=== PATIENT | male | born 1945 ===

== ENCOUNTER 2017-12-02 01:31 | Emergency (ER) | payer OTHER, MEDICAID ==
[2017-12-02 01:32] VITALS: BMI 27.1
--- NOTE | 2017-12-02 01:47 | ED PDOC ---
Arrival/HPI - General Chief Complaint: Trauma Time Seen by Provider: 12/02/17 01:47 Historian: Patient - History of Present Illness Narrative History of Present Illness (Text): 12/02/17 02:16 72 year old male, whose past medical history includes diabetes and hypertension, who presents to the ED with a rt elbow abrasion s/p fall while intoxicated. Patient admits to drinking 2 drinks of whiskey. Patient went outside to smoke when he fell to the ground. 2 people walking past called EMS. Patient denies any head trauma, LOC, back pain, neck pain, nausea, vomiting, diarrhea, abdominal pain, or any other complaints. Time/Duration: Prior to Arrival Symptom Course: Unchanged Activities at Onset: Light Context: Home Past Medical History - Provider Review Nursing Documentation Reviewed: Yes - Infectious Disease Hx of Infectious Diseases: None - Cardiac Hx Pacemaker: No - Neurological Hx Paralysis: No - Hematological/Oncological Hx Blood Transfusions: No Hx Blood Transfusion Reaction: No - Musculoskeletal/Rheumatological Hx Musculoskeletal Disorders: No - Psychiatric Hx Substance Use: No - Anesthesia Hx Anesthesia Reactions: No Hx Malignant Hyperthermia: No Family/Social History - Physician Review Nursing Documentation Reviewed: Yes Family/Social History: Unknown Family HX Hx Substance Use: No Allergies/Home Meds Allergies/Adverse Reactions: Allergies No Known Allergies Allergy (Verified 12/10/13 11:18) Home Medications: Home Meds Medication Instructions Recorded Confirmed Amlodipine Besylate 5 mg PO DAILY 12/10/13 12/02/17 Enalapril Maleate [Enalapril] 10 mg PO DAILY 12/10/13 12/02/17 Hydrochlorothiazide 12.5 mg PO DAILY 12/10/13 12/02/17 Metformin HCl [Metformin] 1,000 mg PO BID 12/10/13 12/02/17 Metoprolol Tartrate 50 mg PO DAILY 12/10/13 12/02/17 Simvastatin 20 mg PO DAILY 12/10/13 12/02/17 Sitagliptin Phosphate [Januvia] 0 mg PO DAILY 12/10/13 12/02/17 Tamsulosin [Flomax] 0.4 mg PO DAILY 12/10/13 12/02/17 Review of Systems - Physician Review All systems were reviewed & negative as marked: Yes - Review of Systems Constitutional: Normal Eyes: Normal ENT: Normal Respiratory: Normal. absent: SOB, Cough Cardiovascular: Normal. absent: Chest Pain Gastrointestinal: Normal. absent: Abdominal Pain Genitourinary Male: Normal. absent: Dysuria Musculoskeletal: Normal. absent: Back Pain, Neck Pain Skin: Other (abrasion rt elbow). absent: Rash Neurological: Normal. absent: Headache, Dizziness Endocrine: Normal Hemo/Lymphatic: Normal Psychiatric: Normal Physical Exam - Physical Exam Narrative Physical Exam (Text): 12/02/17 02:26 Gen: NAD, cooperative, well appearing, non-toxic, faint odor of alcohol, speech is clear and coherent. Head: NCAT. HEENT: EYES: PERRL, EOMI, conjunctiva clear, EARS: TMs clear MOUTH: moist MM, posterior pharynx without erythema or exudate, uvula midline. NECK: supple, FROM, non tender CV: (+) S1S2, RRR, no M/G/R LUNGS: CTA B/L, No W/R/R, good air movement Abd: Soft, NTTP, no guarding, rebound or rigidity. Upper Extremities: LUE elbow abrasion; Full ROM; no swelling or tenderness. Neuro: AAO x 3, GCS 15, CN 2-12 intact, motor and sensory grossly intact, 5/5 muscle strength B/L UE's and LE's. ext: no cyanosis or edema. Vital Signs Reviewed: Yes Vital Signs Temp Pulse Resp BP Pulse Ox 12/02/17 01:38 97.4 F L 73 18 136/79 97 Temperature: Afebrile Blood Pressure: Normal Pulse: Regular Respiratory Rate: Normal Appearance: Positive for: Well-Appearing, Non-Toxic, Comfortable Pain Distress: None Mental Status: Positive for: Alert and Oriented X 3 Medical Decision Making ED Course and Treatment: 12/02/17 02:30 Impression: 72 year old male presents to the ED s/p fall while intoxicated. Plan: -- reassess and disposition 12/02/17 05:30 Progress Notes: Patient still unsteady while ambulating. Plan obs in ED until clinically sober. 12/02/17 07:39 Patient awake and alert, speech clear and coherent, ambulating w/steady gait, tolerating breakfast tray. Plan d/c home to f/u w/pcp and RTED for new or concerning symptoms. Patient agreeable w/POC, states he has no questions and verbalized understanding of d/c instructions. - Scribe Statement The provider has reviewed the documentation as recorded by the Scribe Keyana Cates All medical record entries made by the Scribe were at my direction and personally dictated by me. I have reviewed the chart and agree that the record accurately reflects my personal performance of the history, physical exam, medical decision making, and the department course for this patient. I have also personally directed, reviewed, and agree with the discharge instructions and disposition. Disposition/Present on Arrival - Present on Arrival Any Indicators Present on Arrival: No History of DVT/PE: No History of Uncontrolled Diabetes: No Urinary Catheter: No History of Decub. Ulcer: No History Surgical Site Infection Following: None - Disposition Have Diagnosis and Disposition been Completed?: Yes Diagnosis: Alcohol intoxication, Abrasion of elbow, left Disposition: HOME/ ROUTINE Disposition Time: 07:39 Patient Plan: Discharge Patient Problems: Current Active Problems Problem Status Onset Alcohol intoxication Acute Abrasion of elbow, left Acute Condition: STABLE Discharge Instructions (ExitCare): Skin Abrasions, Alcohol Abuse and Alcoholism (DC) Print Language: DANISH Referrals: Rodolfo Kingston, [Primary Care Provider] - Follow up with primary Forms: [employer] (Polish)
[2017-12-02 08:17] VITALS: BP 129/88; PULSE 79; RESP 18; TEMP 97.9; O2SAT 99
== END 2017-12-02 08:17 | disposition home or self-care (01) ==
LOC: ED 01:31
DX: F10.129 Alcohol abuse with intoxication, unspecified (principal); S50.311A Abrasion of right elbow, initial encounter; W19.XXXA Unspecified fall, initial encounter; E11.9 Type 2 diabetes mellitus without complications; I10 Essential (primary) hypertension